=== PATIENT | female | born 1995 | race Caucasian/White ===

== ENCOUNTER 2019-12-24 06:30 | Inpatient (IN) ==
[~2019-12-24 06:30] MED LIST: ANCEF VIAL 1 GRAM IVP ONE; D5 1/2 NS 1000 ML 1,000 ML IV SCH
[2019-12-24] MEDS ORDERED: LR 1000 ML IV 1,000 ML IV ONE (06:35)
[2019-12-24] MEDS ORDERED: ANCEF 1 GRAM IV PREMIX* 2 G/100 ML BAG IV ONE (06:36)
[2019-12-24] MEDS ORDERED: DILAUDID INJ ONE (06:47)
[2019-12-24] MEDS ORDERED: NS 1000 ML 1,000 ML ONE (06:47)
[2019-12-24] MEDS ORDERED: DECADRON INJ ONE ×2 (06:47→07:15)
[2019-12-24] MEDS ORDERED: XYLOCAINE 2 % (PLAIN) ONE (07:15)
[2019-12-24] MEDS ORDERED: EPHEDRINE SULFATE INJ ONE (07:15)
[2019-12-24] MEDS ORDERED: NEO-SYNEPHRINE INJ ONE (07:15)
[2019-12-24] MEDS ORDERED: D5 1/2 NS 1L W PITOCIN 20 UNITS/L 20 UNITS/1,000 ML BAG IV ONE (09:00)
[2019-12-24] MEDS ORDERED: BENADRYL INJ 50 MG VIAL IVP PRN ×2 (09:02→09:25)
[2019-12-24] MEDS ORDERED: REGLAN INJ 10 MG VIAL IVP PRN ×2 (09:02→09:25)
[2019-12-24] MEDS ORDERED: ZOFRAN INJ 4 MG VIAL IVP PRN ×2 (09:02→09:25)
[2019-12-24] MEDS ORDERED: DILAUDID INJ IVP PRN (09:02)
[2019-12-24] MEDS ORDERED: PHENERGAN INJ 25 MG IM PRN (09:02)
[2019-12-24] MEDS ORDERED: MYLICON TAB 80 MG CHEW PO PRN (09:25)
[2019-12-24] MEDS ORDERED: PERCOCET TAB 5/325 MG PO PRN (09:25)
[2019-12-24] MEDS ORDERED: ADACEL or BOOSTRIX TDaP VACCINE IM ONE (09:25)
[2019-12-24] MEDS ORDERED: TORADOL 30 MG VIAL IVP PRN (09:25)
[2019-12-24] MEDS ORDERED: NARCAN INJ IVP PRN (09:25)
[2019-12-24] MEDS ORDERED: D5 1/2 NS 1000 ML 1,000 ML with PITOCIN 20 UNITS IV SCH ×2 (10:00)
[2019-12-24] MEDS ORDERED: NS IRRIGATION* 1,000 ML ONE (15:38)
[2019-12-24] MEDS: DUONEB 0.5 MG/3 MG (3 mL) NEB PRN (23:30)
[2019-12-25 04:21] LABS: HEMATOCRIT 23.7 % (36.0-47.0)
[2019-12-25] MEDS ORDERED: MOTRIN TAB 800 MG PO PRN (06:07)
[2019-12-25] MEDS: PROTONIX TAB 40 MG PO SCH (09:11)
[2019-12-25] MEDS: COLACE CAP 100 MG PO SCH ×2 (09:11→21:00)
[2019-12-25] MEDS: PRENATAL PLUS PO SCH (09:11)
[2019-12-25] MEDS: FERROUS GLUCONATE PO SCH ×2 (10:07→18:27)
[2019-12-25] MEDS: PERCOCET TAB 5/325 MG PO PRN ×3 (11:28→22:26)
[2019-12-25] MEDS ORDERED: TYLENOL 325 MG TAB PO ONE (14:13)
[2019-12-25] MEDS: BACTROBAN TOPICAL OINT TOP SCH ×2 (14:44→22:36)
[2019-12-25] MEDS: TYLENOL 325 MG TAB PO PRN (23:05)
[2019-12-26] MEDS: PERCOCET TAB 5/325 MG PO PRN ×2 (03:16→15:04)
[2019-12-26] MEDS: DUONEB 0.5 MG/3 MG (3 mL) NEB PRN ×2 (04:00→08:30)
[2019-12-26] MEDS: TYLENOL 325 MG TAB PO PRN ×2 (06:30→12:45)
[2019-12-26] MEDS: BACTROBAN TOPICAL OINT TOP SCH ×2 (06:42→14:45)
[2019-12-26] MEDS: FERROUS GLUCONATE PO SCH (06:43)
[2019-12-26] MEDS ORDERED: BENADRYL CREAM TOPICAL TOP PRN (06:54)
[2019-12-26] MEDS ORDERED: BENADRYL CREAM TOPICAL ONE (06:58)
[2019-12-26] MEDS: PRENATAL PLUS PO SCH (08:46)
[2019-12-26] MEDS: COLACE CAP 100 MG PO SCH (08:46)
[2019-12-26] MEDS: PROTONIX TAB 40 MG PO SCH (08:46)
[2019-12-26 15:02] VITALS: BP 121/59
== END 2019-12-26 15:05 | disposition home or self-care (01) | DRG 785 ==
LOC: LD 06:30 → MED/SURG 09:11
PROVIDERS: ADMIT Specialist; ATTEND Specialist